=== PATIENT | male | born 1985 | race Caucasian/White ===

== ENCOUNTER 2017-04-02 04:25 | Emergency (ER) | payer SELFPAY ==
[2017-04-02 04:41] VITALS: BP 126/90; PULSE 84; TEMP 98.8; BMI 29.2
[2017-04-02] MEDS ORDERED: FAMOTIDINE 20 MG TABLET PO ONE (04:41)
[2017-04-02] MEDS ORDERED: LIDOCAINE VISCOUS 2% ORAL/TOP 20 ML UNIT-DOSE CUP MM ONE (04:41)
[2017-04-02] MEDS ORDERED: ASPIRIN 81 MG CHEWABLE TABLETS PO ONE (04:41)
[2017-04-02] MEDS ORDERED: MAG HYDROX/AL HYDROX/SIMETH 30 ML UNIT-DOSE CUP PO ONE (04:41)
--- NOTE | 2017-04-02 04:41 | PDOC ---
History of Present Illness - General Chief Complaint: Chest Pain Stated Complaint: CHEST PAIN Time Seen by Provider: 04/02/17 04:29 History Source: Patient Exam Limitations: No Limitations - History of Present Illness Initial Comments: 04/02/17 04:39 32 yo male with recently diagnosed with hypertension started on lisinopril / hctz , and GERD here with c/o chest pain and sob. pt states was lying in bed couldnt sleep. thinks maybe he was having anxiety but felt chest pain. feels sharp. no mod factors felt sob. no f/c no n/v no mod factors. no fam h/o heart disease. pt states under a lot of stress recently, broke up with girlfriend, was recently arrested for disorderly conduct at a bar and has court date coming up. used to drink heavily but recently quit. denies suicidal ideation, no prior attempts. has had panic attacks many years ago, not on any antidepressents or other psych mediation. pt tearful during history 04/02/17 04:45 Past History - Past Medical History Allergies/Adverse Reactions: Allergies Allergy/AdvReac Type Severity Reaction Status Date / Time prednisone AdvReac Verified 04/02/17 04:29 Home Medications: Ambulatory Orders Gabapentin [Neurontin] 300 mg PO DAILY 04/02/17 Lisinopril/Hydrochlorothiazide [Lisinopril-Hctz 10-12.5 mg Tab] 1 each PO DAILY 04/02/17 Naproxen [Naprosyn -] 500 mg PO BID 04/02/17 Omeprazole 20 mg PO DAILY 04/02/17 Cardiac Specific PMH - Complaint Specific PMHX Angina: No Cardiac Arrhythmia: No GERD: Yes Myocardial Infarction: No Pulmonary Embolus: No Review of Systems - Review of Systems Constitutional: No: Chills, Diaphoresis Respiratory: Yes: Shortness of Breath. No: Cough Cardiac (ROS): Yes: Chest Pain : No: Burning, Dysuria, Discharge Musculoskeletal: No: Back Pain, Gout Neurological: No: Headache, Numbness All Other Systems: Reviewed and Negative *Physical Exam - Vital Signs Last Vital Signs Temp Pulse Resp BP Pulse Ox 98.8 F 84 18 126/90 98 04/02/17 04:33 04/02/17 04:33 04/02/17 04:33 04/02/17 04:33 04/02/17 04:33 - Physical Exam General Appearance: Yes: Nourished, Appropriately Dressed HEENT: positive: EOMI, Nasal Congestion, Other (conj injection) Neck: negative: Tender Respiratory/Chest: positive: Chest Tender, Lungs Clear, Normal Breath Sounds. negative: Respiratory Distress Cardiovascular: positive: Regular Rhythm, Regular Rate, S1, S2. negative: Edema Gastrointestinal/Abdominal: positive: Normal Bowel Sounds, Flat, Soft. negative : Tender Musculoskeletal: positive: Normal Inspection. negative: CVA Tenderness Extremity: positive: Normal Capillary Refill Integumentary: positive: Normal Color, Dry, Warm Neurologic: positive: Fully Oriented, Alert, Normal Mood/Affect Heart Score/ECG Review #1 General ECG Interpretation: Sinus Rhythm, Normal Rate (74), Normal Intervals, No acute ischemic changes ED Treatment Course - LABORATORY CBC & Chemistry Diagram: 04/02/17 04:40 04/02/17 04:40 - ADDITIONAL ORDERS Additional order review: Laboratory Results 04/02/17 04/02/17 04/02/17 04:40 04:40 04:40 Sodium Potassium Chloride Carbon Dioxide Anion Gap BUN Creatinine Creat Clearance w eGFR Random Glucose Calcium Total Bilirubin AST ALT Alkaline Phosphatase Troponin I < 0.02 Total Protein Albumin Urine Color Ltyellow Urine Appearance Clear Urine pH 6.0 Urine Protein Negative Urine Glucose (UA) Negative Urine Ketones Negative Urine Blood Negative Urine Nitrite Negative Urine Bilirubin Negative Urine Urobilinogen Negative Ur Leukocyte Esterase Negative Opiates Screen Negative Methadone Screen Negative Barbiturate Screen Negative Phencyclidine Screen Negative Ur Amphetamines Screen Negative MDMA (Ecstasy) Screen Negative Benzodiazepines Screen Negative Cocaine Screen Negative U Marijuana (THC) Screen Negative 04/02/17 04/02/17 04:40 04:40 Sodium 134 L Potassium 4.1 Chloride 99 Carbon Dioxide 31 Anion Gap 4 L BUN 13 Creatinine 0.8 Creat Clearance w eGFR > 60 Random Glucose 91 Calcium 8.8 Total Bilirubin 0.6 AST 23 ALT 65 Alkaline Phosphatase 86 Troponin I Cancelled Total Protein 7.3 Albumin 4.5 Urine Color Urine Appearance Urine pH Urine Protein Urine Glucose (UA) Urine Ketones Urine Blood Urine Nitrite Urine Bilirubin Urine Urobilinogen Ur Leukocyte Esterase Opiates Screen Methadone Screen Barbiturate Screen Phencyclidine Screen Ur Amphetamines Screen MDMA (Ecstasy) Screen Benzodiazepines Screen Cocaine Screen U Marijuana (THC) Screen 04/02/17 04:40 RBC 5.28 MCV 89.1 MCHC 34.3 RDW 13.1 MPV 6.9 L Neutrophils % 59.0 Lymphocytes % 29.8 Monocytes % 8.0 Eosinophils % 2.4 Basophils % 0.8 - Medications Given in the ED: ED Medications Discontinued Medications Generic Name Dose Route Start Last Admin Trade Name Liss PRN Reason Stop Dose Admin Al Hydroxide/Mg Hydroxide 30 ml 04/02/17 04:41 04/02/17 04:46 Mylanta Oral Suspension - PO 04/02/17 04:42 30 ml ONCE ONE Administration Aspirin 162 mg 04/02/17 04:41 04/02/17 04:46 Asa - PO 04/02/17 04:42 162 mg ONCE ONE Administration Famotidine 20 mg 04/02/17 04:41 04/02/17 04:46 Pepcid - PO 04/02/17 04:42 20 mg ONCE ONE Administration Lidocaine HCl 20 ml 04/02/17 04:41 04/02/17 04:49 Xylocaine 2% Viscous Oral - MM 04/02/17 04:42 Not Given ONCE ONE Medical Decision Making - Medical Decision Making 04/02/17 04:54 32 yo male h/o etoh abuse ( recently quit) anxiety htn here wtih /co chest pain and sob. unsure if related to anxiety. ekg unremarkable. plan cxr r/o injury such as fx from recent arrest, r/o infection, trop r/o acs, treat with asa and treat for gerd. pt low risk for heart disease. noelle dc home and fu with cardiology prn. 04/02/17 05:03 pt refusing cxr, concerned regarding cost. exlained to pt concerns regarding rib injury, infection and other causes of chest pain. pt does not want cxr aware of risk and benefit. *DC/Admit/Observation/Transfer Diagnosis at time of Disposition: Chest pain - Discharge Dispostion Disposition: HOME Condition at time of disposition: Stable - Referrals Referrals: Akhil Kearns MD [Primary Care Provider] - Connor Martínez MD [Staff Physician] - - Patient Instructions Printed Discharge Instructions: DI for Chest Pain Additional Instructions: you should follow up with a mental health director. call to schedule appt with DR Polanco. or call your primary doctor for a referral. return for any recurrent symptoms or pain. your labs today are normal. you declined your chest xray. your urine is negative for blood or infection.
[2017-04-02 05:05] LABS: BASOPHIL 0.8 % (0-2.0); EOSINOPHIL 2.4 % (0-4.5); MCH 30.6 pg (25.7-33.7); MCHC 34.3 g/dl (32.0-35.9); MEAN CELL VOLUME 89.1 fl (80-96); MEAN PLT VOLUME 6.9 fl (7.5-11.1); PLATELET COUNT 220 K/MM3 (134-434); RDW 13.1 % (11.9-15.9); WHITE BLOOD COUNT 8.4 K/mm3 (4.0-10.0)
[2017-04-02 05:07] LABS: URINE APPEARANCE CLEAR; URINE BILIRUBIN NEGATIVE (NEGATIVE); URINE BLOOD NEGATIVE (NEGATIVE); URINE COLOR LTYELLOW; URINE GLUCOSE (UA) NEGATIVE (NEGATIVE); URINE KETONE NEGATIVE (NEGATIVE); URINE LEUK ESTERASE NEGATIVE (NEGATIVE); URINE NITRITE NEGATIVE (NEGATIVE); URINE PROTEIN NEGATIVE (NEGATIVE); URINE UROBILINOGEN NEGATIVE mg/dL (0.2-1.0)
[2017-04-02 05:16] LABS: URINE MARIJUANA THC NEGATIVE ng/ml (CUTOFF=50)
[2017-04-02 05:34] LABS: ALBUMIN 4.5 g/dl (3.4-5.0); ALK PHOS 86 U/L (45-117); ANION GAP 4 (8-16); BILIRUBIN,TOTAL 0.6 mg/dL (0.2-1.0); CALCIUM 8.8 mg/dL (8.5-10.1); CO2 31 mmol/L (21-32); CREATININE 0.8 mg/dL (0.7-1.3); GLUCOSE,RANDOM 91 mg/dL (74-106); SGOT/AST 23 U/L (15-37); SGPT/ALT 65 U/L (12-78); TOT PROT 7.3 g/dl (6.4-8.2)
--- NOTE | 2017-04-02 10:12 | EKG ---
Test Reason : Blood Pressure : / mmHG Vent. Rate : 074 BPM Atrial Rate : 074 BPM P-R Int : 148 ms QRS Dur : 086 ms QT Int : 378 ms P-R-T Axes : 034 042 012 degrees QTc Int : 419 ms NORMAL SINUS RHYTHM NORMAL ECG NO PREVIOUS ECGS AVAILABLE Confirmed by BRITTANIE ALY MD ([id number]) on 04/02/2017 10:12:25 AM Referred By: MD ELKINS Confirmed By:BRITTANIE ALY MD
== END 2017-04-02 06:15 | disposition home or self-care (01) ==
LOC: FER 04:25
DX: R07.9 Chest pain, unspecified (principal); R06.02 Shortness of breath; I10 Essential (primary) hypertension; K21.9 Gastro-esophageal reflux disease without esophagitis; Z88.8 Allergy status to other drugs, medicaments and biological substances; F10.21 Alcohol dependence, in remission
CPT/HCPCS: 36415; 80053; 80307; 81003; 84484; 85025; 93005; 99281-25